=== PATIENT | male | born 1990 | race Caucasian/White ===

== ENCOUNTER → 2017-03-04 | Outpatient (REF) ==
--- NOTE | 2017-03-04 10:02 | REP ---
PARTIAL LUMBAR SPINE, THREE VIEWS: HISTORY: Degenerative disc disease. There are six lumbar type vertebral bodies. The lowest intervertebral disc is assumed to be the L5-S1 intervertebral disc. There is no acute fracture or subluxation. The L4-5 and L5-S1 intervertebral discs are decreased in height consistent with disc degeneration. There is partial sacralization of the L5 vertebral body. IMPRESSION: Degenerative change as described above. Signed by Celso Edwards MD 03/04/2017 10:18 A
== END ==
LOC: M SMT 09:32
PROVIDERS: ATTEND Internal Medicine
DX: Z02.71 Encounter for disability determination (principal)